=== PATIENT | male | born 1950 | race Caucasian/White ===

== ENCOUNTER 2018-07-21 22:22 | Inpatient (IN) | payer MEDICARE, OTHER ==
[~2018-07-21] VITALS: Ht 182.9 cm; Wt 127.0 kg
[2018-07-21 22:23] VITALS: BP 101/57
[2018-07-21] MEDS ORDERED: PROTONIX40 M1 PO (22:32)
[2018-07-21] MEDS ORDERED: TOPAMAX50 MG PO (22:33)
[2018-07-21] MEDS ORDERED: ZYRTEC 10 MG TA10 MG PO (22:33)
[2018-07-21] MEDS ORDERED: ADIPEX-P37.5 MG (22:33)
[2018-07-21] MEDS ORDERED: ASPIRIN81 M2 PO (22:34)
[2018-07-21] MEDS ORDERED: COZAAR 25 MG TA25 M1 (22:34)
[2018-07-21] MEDS ORDERED: ALPHA LIPOIC A300 MG PO (22:34)
[2018-07-21] MEDS ORDERED: LYRICA 50 MG50 MG PO (22:35)
[2018-07-21] MEDS ORDERED: INVOKANA100 MG PO (22:35)
[2018-07-21] MEDS ORDERED: METFORMIN HCL500 MG PO (22:36)
[2018-07-21] MEDS ORDERED: KLOR-CON 1010 MEQ PO (22:36)
[2018-07-21] MEDS ORDERED: IRON325 PO (22:36)
[2018-07-21] MEDS ORDERED: UROXATRAL PO (22:37)
[2018-07-21] MEDS ORDERED: TOPROL XL25 MG PO (22:37)
[2018-07-21] MEDS ORDERED: LIPITOR 20 MG T20 M1 PO (22:37)
[2018-07-21] MEDS ORDERED: CYMBALTA60 MG PO (22:39)
[2018-07-21] MEDS ORDERED: ALLOPURINOL 10100 M3 PO (22:39)
[2018-07-21] MEDS ORDERED: COQ-10100 MG PO (22:40)
[2018-07-21] MEDS ORDERED: D3 DOTS2000 UNIT PO (22:40)
[2018-07-21] MEDS ORDERED: VITAMINC500 PO (22:41)
[2018-07-21] MEDS ORDERED: LANTUS100 UNIT/M SUBQ (22:42)
[2018-07-21] MEDS ORDERED: VICTOZA0.6 MG/0.1 SUBQ (22:42)
[2018-07-21] MEDS ORDERED: HUMALOG100 UNIT/1 SUBQ (22:42)
[2018-07-21] MEDS ORDERED: REMICADE 1100 MG/VIA IV (22:44)
[2018-07-21 23:03] LABS: ABSOLUTE BASOPHILS 0.1 thou/uL (0.0-0.2); ABSOLUTE EOSINOPHILS 1.1 thou/uL (0.0-0.7); ABSOLUTE LYMPHOCYTES 2.2 thou/uL (0.8-5.3); ABSOLUTE MONOCYTES 1.1 thou/uL (0.0-1.2); ABSOLUTE NEUTROPHILS 8.4 thou/uL (1.6-8.1); BASOPHILS 0.5 %; EOSINOPHILS 8.2 %; HEMATOCRIT 48.3 % (42.0-52.0); HEMOGLOBIN 15.8 gm/dL (14.0-18.0); LYMPHOCYTES 16.9 %; MCH 28.9 pg (26.0-34.0); MCHC 32.7 g/dL (28.0-37.0); MCV 88.5 fL (80.0-100.0); MONOCYTES 8.9 %; MPV 9.2 fl. (7.2-11.1); NUCLEATED RBCS 0 /100WBC; PLATELET COUNT* 280 thou/uL (150-400); POLYS 65.5 %; RBC 5.46 mil/uL (4.50-6.00); WBC 12.8 thou/uL (4.0-11.0)
[2018-07-21 23:12] LABS: CALCIUM 10.3 mg/dL (8.5-10.1); POTASSIUM 4.3 mmol/L (3.5-5.1)
[2018-07-21 23:16] LABS: ALBUMIN 3.8 g/dL (3.4-5.0); TOTAL BILIRUBIN 0.6 mg/dL (<0.1-1.0); TOTAL PROTEIN 8.3 g/dL (6.4-8.2)
[2018-07-22] VITALS (7 sets, daily range): BP systolic 98–132; BP diastolic 46–70
[2018-07-22 00:25] LABS: URINE BLOOD 3+ (Negative); URINE COLOR BROWN; URINE GLUCOSE-RANDOM NEGATIVE (Negative); URINE KETONES NEGATIVE (Negative); URINE NITRITE-REFLEX NEGATIVE (Negative); URINE PROTEIN 1+ (Negative); URINE UROBILINOGEN 0.2 E.U./dl (0.2-1.0)
[2018-07-22 00:26] LABS: ICTOTEST (BILI CONFIRMATORY) Positive (Negative); URINE BILIRUBIN 3+ (Negative); URINE CLARITY CLOUDY; URINE LEUKOCYTES-REFLEX 3+ (Negative)
[2018-07-22 00:46] LABS: SQUAMOUS 0-3 Few /LPF (0-3)
[2018-07-22 00:47] LABS: URINE WBC-REFLEX 6-15 Few /HPF (0-5)
[2018-07-22 00:48] LABS: AMORPHOUS PHOSPHATES Few /LPF (None Seen); BACTERIA-REFLEX >30 Many /HPF (None Seen); CASTS None Seen /LPF (None Seen); MUCUS 0-3 Light strn/LPF (None Seen); URINE RBC >20 Many /HPF (0-2)
[2018-07-22 08:10] LABS: ABSOLUTE EOSINOPHILS 0.9 thou/uL (0.0-0.7); ABSOLUTE LYMPHOCYTES 1.8 thou/uL (0.8-5.3); ABSOLUTE MONOCYTES 0.9 thou/uL (0.0-1.2); ABSOLUTE NEUTROPHILS 5.7 thou/uL (1.6-8.1); BASOPHILS 0.5 %; EOSINOPHILS 9.3 %; HEMATOCRIT 49.5 % (42.0-52.0); HEMOGLOBIN 16.1 gm/dL (14.0-18.0); LYMPHOCYTES 19.2 %; MCH 28.6 pg (26.0-34.0); MCHC 32.4 g/dL (28.0-37.0); MCV 88.3 fL (80.0-100.0); MPV 9.2 fl. (7.2-11.1); NUCLEATED RBCS 0 /100WBC; PLATELET COUNT* 227 thou/uL (150-400); RBC 5.61 mil/uL (4.50-6.00); RDW-CV 16.2 % (10.5-14.5); WBC 9.3 thou/uL (4.0-11.0)
[2018-07-22 08:20] LABS: CALCIUM 10.3 mg/dL (8.5-10.1); CREATININE 1.7 mg/dL (0.6-1.3); POTASSIUM 4.8 mmol/L (3.5-5.1)
--- NOTE | 2018-07-22 17:11 | NUR ---
PT ADMITTED TO UNIT WITH DIARRHEA, ACUTE RENAL FIALURE, AND DEHYDRATION. PT IS ALERT AND ORIENTED. PT IS ON ROOM AIR. CPAP HS FROM HOME. LUNGS CLEAR. PULSES 2+ IN ALL EXTREMITIES. BOWEL SOUNDS ACTIVE, PT HAS ILEOSTOMY. PT HAS LT WRIST IV WITH NS AT 100. PT IS AN ACCU CHECK. CARB CONTROL DIET. GI CALLED AND MAY SEE PT TODAY OR TOMORROW. FALL RISK PRECAUTINS IN PLACE. WILL CONTINUE TO MONITOR.
--- NOTE | 2018-07-22 17:21 | NUR ---
Patient taken by bed to 314. VSS. Patient denies pain or concerns. CPAP and house shoes with patient. present during transfer. Report to Esperanza MERIDA.
--- NOTE | 2018-07-22 18:21 | NUR ---
PT REMAINED ALERT AND ORIENTED. PT RESTING IN ROOM. INSULIN GIVEN ORDERED. COLLECTED HOME MEDS AND AWAITING PHARMACY TO PICK IT UP AND LABEL IT. COLLECTING STOOL SAMPLE, PT AWARE. FALL RISK PRECAUTIONS IN PLACE. HOURLY ROUNDING COMPLETED. WILL CONTINUE TO MONITOR.
[2018-07-23 04:06] LABS: HEMATOCRIT 44.6 % (42.0-52.0); HEMOGLOBIN 14.8 gm/dL (14.0-18.0); MCH 29.3 pg (26.0-34.0); MCHC 33.2 g/dL (28.0-37.0); MCV 88.1 fL (80.0-100.0); MPV 9.2 fl. (7.2-11.1); RBC 5.07 mil/uL (4.50-6.00); RDW-CV 15.9 % (10.5-14.5); WBC 7.9 thou/uL (4.0-11.0)
[2018-07-23 04:27] LABS: CALCIUM 9.3 mg/dL (8.5-10.1); CREATININE 1.3 mg/dL (0.6-1.3); MAGNESIUM 1.8 mg/dL (1.8-2.4); POTASSIUM 4.5 mmol/L (3.5-5.1)
[2018-07-23 07:25] VITALS: BP 98/60
--- NOTE | 2018-07-23 07:36 | NUR ---
PT LAERT AND ORIENTED. VSS ON RA. IV ABX INFUSED ORDERED. PT SLEPT MOST OF SHIFT. CPAP @ HS. PT DENIES N/P THIS SHIFT. CALL LIGHT WITHIN REACH. HOURLY ROUNDINGS MADE. WILL CONTINUE TO MONITOR.
[2018-07-23 12:30] VITALS: BP 114/66
--- NOTE | 2018-07-23 15:00 | NUR ---
PT.ALERT AND ORIENTED. HE LIVES WITH HIS . IS NORMALLY ACTIVE. HE AND RECENTLY RETURNED FROM [place]. HAS A HX OF CHRONS. RECEIVES REMICADE AT [facility] UNDER EVERY 4 WEEKS. PT.HAS NO DME. NO HX OF HH OR SNF.
--- NOTE | 2018-07-23 17:26 | NUR ---
PT REMAINED ALERT AND ORIENTED. PT RESTING IN ROOM. GI SIGNED OFF. BP WAS LOW THIS MORNING, CONTINUE FLUIDS AND PHYSICIAN DISCONTINUED BLOOD PRESSURE MEDS. C.DIFF NEGATIVE. FALL RISK PRECAUTIONS IN PLACE. HOURLY ROUNDING COMPLETED. WILL CONTINUE TO MONITOR.
[2018-07-23 20:40] VITALS: BP 135/54
[2018-07-24 04:44] LABS: HEMATOCRIT 42.2 % (42.0-52.0); HEMOGLOBIN 14.1 gm/dL (14.0-18.0); MCH 29.2 pg (26.0-34.0); MCHC 33.3 g/dL (28.0-37.0); MCV 87.6 fL (80.0-100.0); MPV 9.2 fl. (7.2-11.1); RBC 4.82 mil/uL (4.50-6.00); WBC 6.6 thou/uL (4.0-11.0)
[2018-07-24 05:07] LABS: CALCIUM 9.5 mg/dL (8.5-10.1); CREATININE 1.1 mg/dL (0.6-1.3); MAGNESIUM 1.7 mg/dL (1.8-2.4); POTASSIUM 4.2 mmol/L (3.5-5.1)
--- NOTE | 2018-07-24 06:48 | NUR ---
PATIENT HAS SLEPT WELL THROUGHOUT THE NIGHT. VSS ON RA. NO C/O PAIN. PATIENT IS UP AD-ANDRÉS AND STEADY. ILEOSTOMY IN PLACE WITH MODERATE AMOUNT OF STOOL. PATIENT PROVIDES SELF CARE OF ILEOSTOMY. IV IN LEFT WRIST-NS @ 100ML/HR. PATIENT INSTRUCTED TO USE CALL LIGHT WHEN NEEDING ASSISTANCE. HOURLY ROUNDS MADE. WILL CONTINUE WITH PLAN OF CARE AND NURSING TO MONITOR.
[2018-07-24 07:50] VITALS: BP 135/65
[2018-07-24] MEDS ORDERED: CIPRO500 MG PO (10:53)
[2018-07-24] MEDS ORDERED: COZAAR 25 MG TA25 M1 PO (10:53)
[2018-07-24] MEDS ORDERED: FLAGYL500 M1 PO (10:53)
[2018-07-24 11:19] VITALS: BP 135/65
--- NOTE | 2018-07-24 13:00 | NUR ---
PATIENT DISCHARGED TO HOME. DISCHARGE PAPERS REVIEWED AND SIGNED. PRESCRIPTIONS CALLED TO [facility] IN [place]. IV REMOVED. PATIENT DENIES ANY FURTHER NEEDS. PATIENT TAKEN AMBULATORY TO EXIT. LEFT WITH .
--- NOTE | 2018-07-27 12:32 | CON ---
[address] [address] CONSULTATION Name: MODESTO OVIEDO Room: [address] IN M.R.#: [id number] Admission: 07/22/18 Attend Phys: Roque Moralez Discharge: 07/24/18 Date of : 52 Report #: [id number] THIS REPORT FOR: //name// CC: Dr. Fritz [facility] FAM physician/PCP Altagracia Cortez MD DATE OF SERVICE: 07/22/2018 TIME: 20:30. REFERRING PHYSICIAN: Altagracia Cortez MD. REASON FOR CONSULTATION: Severe diarrhea. IMPRESSION: 1. Acute onset of severe diarrhea of uncertain etiology - evaluate for infectious etiology versus less likely Crohn's exacerbation versus possible small bowel bacterial overgrowth. 2. Crohn's disease for which the patient receives Remicade infusions at [facility] every four weeks with his last infusion being done one week ago. 3. Dehydration secondary to #1 with acute . RECOMMENDATIONS: 1. At the present time, the patient is doing much better just with hydration and current antibiotics. It certainly is possible he has bacterial overgrowth versus less likely a C. diff infection of his small bowel. The patient has not been exposed to any antibiotics and he currently appears to be responding to antibiotics in the form of Cipro and Flagyl. We will continue with current medical therapy at this point in time without any plans for any endoscopic or radiographic studies. 2. We will await the results from his stool studies. 3. I will contact his personal chef de froid, Dr. Fritz, tomorrow at area code [phone] for any other recommendation regarding this patient's care. 4. If the patient's stools continue to form up at this point in time, I am in favor of probably sending him home on at least Flagyl for possible bacterial overgrowth, but I would like to make sure that he is tolerating a diet and his stool frequency is tolerable and back to the baseline. I have discussed the plans with the patient as well and he is agreeable to the same. HISTORY OF PRESENT ILLNESS: The patient is a pleasant 67-year-old white male with history of Crohn's disease for which the patient has undergone a total colectomy with a permanent right lower quadrant ileostomy. He normally does well with current Remicade infusions performed every [place] [address] CONSULTATION Name: MODESTO OVIEDO Room: [address] IN [facility]#: [id number] Admission: 07/22/18 Attend Phys: Roque Moralez Discharge: 07/24/18 Date of : 52 Report #: [id number] [facility] under direction of Dr. Fritz. He states he is doing relatively well but started having problems this last weekend, which he is not feeling well. He is having problems with cramping and he started having problem with profuse diarrhea. He is having to change his bag on every half hour basis. It is very watery stool with associated cramping and urgency. He denied any bleeding. He denied fevers or chills, nausea and vomiting. He does not feel well. His who is very attentive to him had noted that he did not look well and felt that he needed to come to the hospital for if nothing else IV hydration. He is admitted to the hospital for the same. The patient denies being exposed to anybody who has been ill, but he did have recently travel back from [place]. He has not had any ill exposures nor has he had any recent antibiotics. He is feeling much better at this point in time and he states his stool appears to be getting a little bit more formed. ALLERGIES: None. MEDICATIONS AT HOME: Include Protonix, Zyrtec, Cozaar, aspirin, alpha lipoic acid, Invokana, Lyrica, metformin, iron, potassium, Uroxatral, Toprol, Lipitor, allopurinol, Cymbalta, vitamin D3, CoQ10, vitamin C, Humalog insulin and Lantus insulin, Victoza, Remicade, Topamax and Adipex. PAST MEDICAL HISTORY: Significant for hypertension, hyperlipidemia, diabetes, chronic acid reflux, history of gout, anxiety, depression, history of chronic headaches as well. He has had previous total colectomy and permanent ileostomy. He has had problem with peripheral neuropathy, hypertension, and Crohn's as mentioned above. SOCIAL HISTORY: The patient is recently retired, does not smoke or drink. FAMILY HISTORY: Negative. PHYSICAL EXAMINATION: GENERAL: Pleasant 67-year-old gentleman who is visiting from out of town from [place]. CARDIOPULMONARY: Revealed a regular rate and rhythm. LUNGS: Clear. ABDOMEN: Soft and nontender. No rebound or guarding noted. LABORATORY TESTS: Revealed a white count of 12.8, hemoglobin 15.8, platelet count 208,000. His MCV is 88.5 and RDW 16.0. His differential is normal. His sodium was 137, potassium 4.3, chloride 103, bicarbonate is 20, BUN 26, creatinine 2.0. On admission, his total bilirubin 0.6, alkaline phosphatase 35, AST 34, ALT . His albumin is 3.8. His urinalysis revealed him to have positive ketones and some blood within the same. With hydration this morning, his BUN and creatinine are down to 29 and 1.7 for GFR of 41. His hemoglobin has [facility] [address] [place] [address] CONSULTATION Name: IVELISSEMODSETO Room: [address] IN .R.#: [id number] Admission: 07/22/18 Attend Phys: Roque Moralez Discharge: 07/24/18 Date of : 52 Report #: [id number] remained relatively stable at 16.1. DISCUSSION: At the present time, I suspect the patient has had some type of infectious etiology causing issues. He does have stool studies that are pending at this point in time and await the results from the same. I will contact his IBD doctor tomorrow and make further recommendations thereafter. <ELECTRONICALLY SIGNED> By: Solo Landaverde DO 07/27/18 1232 [id number] [id number] Landaverde DO /nt
== END 2018-07-24 13:00 | disposition home or self-care (01) | DRG 682 ==
LOC: M.ERS 22:22 → M.TBA-ER 07-22 00:02 → M.3W 07-22 16:34
PROVIDERS: Emergency Medicine; Internal Medicine; ADMIT Internal Medicine
DX: N17.0 Acute kidney failure with tubular necrosis (principal); R65.11 Systemic inflammatory response syndrome (SIRS) of non-infectious origin with acute organ dysfunction; K50.90 Crohn's disease, unspecified, without complications; N39.0 Urinary tract infection, site not specified; A08.4 Viral intestinal infection, unspecified; I10 Essential (primary) hypertension; E86.0 Dehydration; E78.5 Hyperlipidemia, unspecified; K21.9 Gastro-esophageal reflux disease without esophagitis; M10.9 Gout, unspecified; F41.9 Anxiety disorder, unspecified; F32.9 Major depressive disorder, single episode, unspecified; E11.42 Type 2 diabetes mellitus with diabetic polyneuropathy; I95.9 Hypotension, unspecified; Z79.82 Long term (current) use of aspirin; Z79.4 Long term (current) use of insulin; Z90.49 Acquired absence of other specified parts of digestive tract; Z93.2 Ileostomy status; Z79.899 Other long term (current) drug therapy